=== PATIENT | male | born 1980 | race Hispanic/Latino ===

== ENCOUNTER 2017-07-22 14:27 | Emergency (ER) | payer OTHER ==
[2017-07-22 14:42] VITALS: BP 127/70
--- NOTE | 2017-07-22 15:18 | XRay Report ---
LEFT HAND: Fifth digit pain. The bony architecture is intact. Bony alignment is normal. No soft tissue abnormalities are seen. The joint spaces appear preserved. IMPRESSION: Normal left hand.
--- NOTE | 2017-07-22 15:46 | Emergency Department Report ---
Upper Extremity - [facility] Chief Complaint: Extremity Injury, Upper Stated Complaint: FINGER INJURY Time Seen by Provider: 07/22/17 15:44 Upper Extremity: Left Little Finger (left small finger pain after swelling 1 week ago), Right Shoulder, Right Arm, Right Elbow, Right Forearm, Right Thumb, Right Index Finger, Right Middle Finger, Right Ring Finger Occurred When: >5 Days (1 week ago) Mechanism: Other (since that his left small finger was caught between objects and felt like he crashed that) Severity: mild (pain is 2 out of 10 only with movement. Feels sore he said he took Midol the second day after the incident happened but no medication since. He said it helped with the pain) Symptoms: Yes Pain with Movement (mode pain with movement to left finger), Yes Swelling (the small finger), No Deformity, No Limited Range of Movement ( patient started wearing splints 2 days after the incident), No Numbness, No Weakness, No Bruising/Ecchymosis, No Laceration or Abrasion Other History: Patient reported that his left small finger got caught between objects and it became swollen. This incident happened one week ago and he has not sought medical attention until today. He said he is experiencing minimal pain. Patient has a metal splint on but says that he doesn't feel like he needed his medic told him that he should wear it and get x-ray. Patient took Midol 2 days after the incident occurred and started wearing finger splint 2 days after. He denies any radiation of pain up his arm and denies any numbness or tingling. Patient denies any fever or chills. Denies any bruising, laceration or or abrasions the finger. ED Review of Systems ROS: Stated complaint: FINGER INJURY Other details as noted in HPI Comment: All other systems reviewed and negative Constitutional: no symptoms reported Respiratory: no symptoms reported Cardiovascular: denies: chest pain, palpitations, syncope Gastrointestinal: denies: abdominal pain, nausea, vomiting Musculoskeletal: arthralgia, other (left finger pain after injury). denies: back pain, joint swelling, myalgia Skin: denies: rash, pruritus Neurological: denies: headache, numbness, paresthesias, confusion ED Past Medical Hx - Past Medical History Previous Medical History?: No - Surgical History Past Surgical History?: Yes Additional Surgical History: hernia - Family History Family history: no significant - Social History Smoking Status: Never Smoker Substance Use Type: Alcohol - Medications Home Medications: Home Medications Medication Instructions Recorded Confirmed Last Taken Type Ibuprofen [Motrin] 600 mg PO Q8H PRN #12 tablet 07/22/17 Unknown Rx Upper Extremity Exam - Exam General: Vital signs noted. No distress. Alert and acting appropriately. This is a 37-year-old male well-nourished well-developed in no acute distress Head and Torso: No HEENT Abnormality, No Neck Tenderness, No Chest/Lungs Abnormality, No Abdominal Tenderness, No Back Tenderness Shoulder Exam: Yes Normal Range of Motion in Shoulder, No Shoulder Tenderness, No Clavicle Tenderness, No Shoulder Deformity, No AC Joint Tenderness Arm Exam: No Arm/Humerus Tenderness, No Arm Deformity Elbow: Yes Normal Range of Motion in Elbow, No Elbow Tenderness, No Elbow Deformity Forearm: No Forearm Tenderness, No Forearm Deformity, No Pain with Pronation, No Pain with Supination Wrist: Yes Normal ROM in Wrist, No Wrist Tenderness, No Wrist Deformity, No Snuffbox Tenderness, No Pain with Axial Thumb Compression Hand: Yes Digit Tenderness (finger small pain with palpation), Yes Normal ROM in Digit(s), No Hand Tenderness, No Hand Deformity, No Digit(s) Deformity, No Tendon Dysfunction CMS Exam: Yes Normal Distal Pulses, Yes Normal Capillary Refill, Yes Normal Distal Sensation, No Broken Skin ED Course Vital Signs 07/22/17 14:39 Temperature 98.4 F Pulse Rate 67 Respiratory 16 Rate Blood Pressure 127/70 O2 Sat by Pulse 97 Oximetry - Reevaluation(s) Reevaluation #1: 07/22/17 16:53 Vision is stable throughout ED stay ED Medical Decision Making - Radiology Data Radiology results: report reviewed History of left hand reveal no acute bony abnormality and no soft tissue swelling. - Medical Decision Making ED course: A wasserman injury to his left small finger one week ago while at work and said he got his left finger caught between objects. He did not seek medical attention until today because he said he was told by medic to come to the emergency room to get x-ray done. Patient said that he plays metal finger splint on site 2 days after the accident and he also took Midol 2 days after the accident. Patient is having minimal pain with movement and does not have any neurovascular deficit. Surgery of left hand reveal no acute bony abnormalities or soft tissue swelling. Patient with normal range of motion to finger. I discussed with him that he needs to keep metal splint off as he does not have any contusion or fracture and he needs to move his fingers much as possible to prevent contraction. Bilateral hand tube depatcher is strong and equal and he has no signs of tendon injury. Patient has good color, movement sensation in temperature to extremities. Patient discharged home in stable condition. He voiced understanding of diagnosis and treatment plan. I also gave him the results of his x-ray. Discharged from emergency room with prescriptions for Motrin and to follow up with his primary care physician/orthopedist if he continues to have pain. Critical care attestation.: If time is entered above; I have spent that time in minutes in the direct care of this critically ill patient, excluding procedure time. ED Disposition Clinical Impression: Finger pain, left Injury of finger of left hand Qualifiers: Encounter type: initial encounter Qualified Code(s): S69.92XA - Unspecified injury of left wrist, hand and finger(s), initial encounter Disposition: TO HOME OR SELFCARE Is pt being admited?: No Does the pt Need Aspirin: No Condition: Stable Instructions: Arthralgia (ED), Jammed Finger (ED) Additional Instructions: Please follow-up with your primary care physician or orthopedic doctor if needed. can take Motrin as prescribed for pain Prescriptions: Ibuprofen [Motrin] 600 mg PO Q8H PRN #12 tablet PRN Reason: Pain Referrals: your, PCP [Other] - 2-3 Days CATHY CADE MD [Staff Physician] - 2-3 Days Forms: Work/School Release Form(ED)
== END 2017-07-22 17:08 | disposition home or self-care (01) ==
LOC: ED 14:27
DX: S69.82XA Other specified injuries of left wrist, hand and finger(s), initial encounter (principal); W23.0XXA Caught, crushed, jammed, or pinched between moving objects, initial encounter; Y93.89 Activity, other specified; Y92.89 Other specified places as the place of occurrence of the external cause; Y99.8 Other external cause status
CPT/HCPCS: 99283